=== PATIENT | male | born 1945 | race Caucasian/White ===

== ENCOUNTER → 2017-12-10 | Outpatient (CLI) | payer MEDICARE ==
[~2017-12-10] MED LIST: ACET325 PO; AMOCLA875 PO; ASCO500 PO; ASPI81CH PO; BLOOD PRESSURE MED; CEPH500 PO; CHOL10002 PO; CYAN1000 PO; CYAN500 PO; DOCU100 PO; GLIP2.5ER PO; GLIP5 PO; GUAI600T33; HYDCHL25 PO; Juven1 EACH PO; LEVAQUIN-D750 MG/150 IV; LISI5 PO; LISINOPRIL; Lisinopril2.5 MG PO; MECL25 PO; METF500 PO; METO100ER PO; Mysoline250 MG PO; NAPR500 PO; NITR100CA PO; ONDA4ODT MM; OSEL75CA; PHENY100ER PO; PRIM250 PO; PROBIOTIC1 EAC1; Prosource30 ML PO; SIMV10 PO; SIMV5 PO; SULTRIDS; SULTRIDS PO; TAMS.4ER PO; Vancocin HCL1000 M1 IV; WARF10 PO; WARF2.5 PO; WARF7.5 PO
== END | disposition home or self-care (01) ==
LOC: PLD 08:06 → LAB SHORT 08:06
DX: C44.612 Basal cell carcinoma of skin of right upper limb, including shoulder (principal); D04.62 Carcinoma in situ of skin of left upper limb, including shoulder; D04.61 Carcinoma in situ of skin of right upper limb, including shoulder
CPT/HCPCS: 88305

== ENCOUNTER → 2017-12-30 | Outpatient (CLI) | payer MEDICARE | LOC: LAB SHORT → PLD | DX: C44.612 Basal cell carcinoma of skin of right upper limb, including shoulder (principal) | CPT/HCPCS: 88305 ==

== ENCOUNTER → 2018-02-13 | Outpatient (CLI) | payer MEDICARE | LOC: LAB 11:32 | DX: L08.0 Pyoderma (principal) | CPT/HCPCS: 87070; 87077; 87147; 87186; 87205 ==

== ENCOUNTER 2018-06-21 13:49 | Emergency (ER) | payer MEDICARE ==
[~2018-06-21] VITALS: Ht 188 cm; Wt 136.1 kg
[~2018-06-21 13:49] MED LIST changes: -CEPH500 PO
[2018-06-21 14:16] LABS: Source, Urine Catheter
[2018-06-21 14:19] LABS: Bilirubin, Urine Neg (Neg); Blood, Urine 4+ (Neg); Glucose Qualitative, Urine Neg (Neg); Ketones, Urine Neg (Neg); Leukocyte Esterase, Urine 3+ (Neg); Nitrite, Urine Neg (Neg); Protein, Urine 1+ (Neg); Specific Gravity, Urine 1.015 (1.003-1.022); Urobilinogen, Urine NORM (Normal)
[2018-06-21 14:21] LABS: Appearance, Urine Cloudy (Clear); Color, Urine Yellow (P-Yellow)
[2018-06-21 14:25] LABS: Bacteria Many /hpf; Hyaline Casts 0-2 /lpf (0-2); Red Blood Cells, Urine 0-2 /hpf (0-2); Squamous Epithelial Cells Not Seen /hpf (Few); White Blood Cells, Urine TNTC /hpf (0-5)
[2018-06-21] MEDS ORDERED: CEPH500 PO (14:31)
== END 2018-06-21 15:02 | disposition home or self-care (01) ==
LOC: ER 13:49
PROVIDERS: Emergency Medicine
DX: T83.090A Other mechanical complication of cystostomy catheter, initial encounter (principal); N39.0 Urinary tract infection, site not specified; I11.0 Hypertensive heart disease with heart failure; I50.9 Heart failure, unspecified; E11.9 Type 2 diabetes mellitus without complications; E78.5 Hyperlipidemia, unspecified; Z79.82 Long term (current) use of aspirin; Z79.899 Other long term (current) drug therapy; Z79.84 Long term (current) use of oral hypoglycemic drugs
CPT/HCPCS: 51705; 81001; 87077; 87086; 87147; 87186; 99284-25; C2627

== ENCOUNTER 2019-03-22 08:10 | Inpatient (IN) | payer MEDICARE ==
[~2019-03-22] VITALS: Ht 185.4 cm; Wt 137.1 kg
[~2019-03-22 08:10] MED LIST changes: +Aspirin EC81 MG PO; +CEPH500 PO; +Dilantin 100 m100 MG PO; -GLIP2.5ER PO
[2019-03-22 08:52] LABS: BASOPHILS ABSOLUTE AUTO 0.02 K/mm3 (0.00-0.23); BASOPHILS PERCENT AUTO 1 % (0-2); EOSINOPHILS ABSOLUTE AUTO 0.09 K/mm3 (0.00-0.68); EOSINOPHILS PERCENT AUTO 4 % (0-6); Hematocrit 32.9 % (37.0-53.0); Hemoglobin 10.1 g/dL (13.5-17.5); IMMATURE GRAN PERCENT AUTO 0 % (0-1); LYMPHOCYTES ABSOLUTE AUTO 0.58 K/mm3 (0.84-5.20); LYMPHOCYTES PERCENT AUTO 26 % (21-46); MONOCYTES ABSOLUTE AUTO 0.28 K/mm3 (0.16-1.47); MONOCYTES PERCENT AUTO 13 % (4-13); Mean Corpuscular HGB 27.1 pg (26.0-34.0); Mean Corpuscular HGB Conc 30.7 g/dL (31.5-36.5); Mean Corpuscular Volume 88 fL (80-100); Mean Platelet Volume 9.8 fL (9.1-12.4); NEUTROPHILS ABSOLUTE AUTO 1.24 K/mm3 (1.96-9.15); NEUTROPHILS PERCENT AUTO 56 % (41-73); Platelet Count 87 K/mm3 (150-400); RDW Coefficient Variation 18.5 % (11.7-14.2); RDW Standard Deviation 57.6 fL (35.1-46.3); Red Blood Cell Count 3.73 M/mm3 (4.30-5.90); White Blood Cell Count 2.21 K/mm3 (4.00-11.30)
[2019-03-22 09:09] LABS: International Normalized Ratio 1.01; Prothrombin Time Results 10.7 Sec (9.7-11.5)
[2019-03-22 09:16] LABS: Alanine Aminotransfer (ALT/SGP 40 U/L (12-78); Albumin/Globulin Ratio 0.7 (0.8-1.8); Alk Phos 241 U/L (50-136); Anion Gap 3 mmol/L (6-16); Aspartate Aminotrans (AST/SGOT 40 U/L (12-37); Bilirubin, Total 0.4 mg/dL (0.1-1.0); Blood Urea Nitrogen 16 mg/dL (8-24); Bun/Creatinine Ratio 21.2 (12.0-20.0); CO2, Blood 30 mmol/L (21-32); CPK Creatine Kinase 68 U/L (39-308); Chloride, Blood 108 mmol/L (98-108); Creatinine, Blood 0.75 mg/dL (0.60-1.20); Ethanol (Alcohol), Blood, Med <3 mg/dL; Globulin, Blood 4.6 g/dL (2.2-4.0); Glomerular Filtration Rate >60 (60-); Glucose, Blood 113 mg/dL (70-99); Potassium, Blood 4.3 mmol/L (3.5-5.5); Sodium, Blood 141 mmol/L (136-145); Total Protein, Blood 7.6 g/dL (6.4-8.2)
[2019-03-22 09:40] LABS: Source, Urine Catheter
[2019-03-22 09:53] LABS: Appearance, Urine Cloudy (Clear); Bilirubin, Urine Neg (Neg); Blood, Urine 5+ (Neg); Color, Urine Yellow (P-Yellow); Glucose Qualitative, Urine Neg (Neg); Ketones, Urine Neg (Neg); Leukocyte Esterase, Urine 3+ (Neg); Nitrite, Urine Pos (Neg); Protein, Urine 3+ (Neg); Urobilinogen, Urine 1+ (Normal)
[2019-03-22 10:03] LABS: White Blood Cells, Urine TNTC /hpf (0-5)
[2019-03-22 10:04] LABS: Bacteria Many /hpf; Squamous Epithelial Cells Rare /hpf (Few)
[2019-03-22 10:10] LABS: U Amphetamine Screen Not Detected; U Barbituate Screen DETECTED; U Benzodiazapine Screen Not Detected; U Buprenorphine Screen Not Detected; U Cannabinoids Screen Not Detected; U Cocaine Screen Not Detected; U Methadone Screen Not Detected; U Methamphetamine Screen Not Detected; U Opiates Screen Not Detected; U Oxycodone Screen Not Detected; U Phencyclidine Screen Not Detected; U Propoxyphene Screen Not Detected
[2019-03-22 10:48] LABS: Dilantin (Phenytoin), Total 0.7 ug/mL (10.0-20.0)
[2019-03-22] MEDS ORDERED: Prinivil10 MG PO (12:11)
[2019-03-22] MEDS ORDERED: PHENY100ER PO (14:27)
--- NOTE | 2019-03-22 14:27 | NUR ---
Echocardiogram using 0.60ml of Definity contrast performed.
[2019-03-22] MEDS ORDERED: PRIM250 PO ×2 (14:28→14:29)
[2019-03-22] MEDS ORDERED: INSULANPEN SC (14:29)
[2019-03-22] MEDS ORDERED: TRESIBA FL200 UNIT/1 SC (14:30)
[2019-03-22] MEDS ORDERED: ELIQUIS5 MG PO (14:31)
--- NOTE | 2019-03-22 14:49 | NUR ---
ADMIT REPORT RECEIVED FROM SUSIE HALE. PT ARRIVED VIA GURNEY ACCOMPANIED BY RN AND FAMILY. PT RESTING QUIETLY. OPENS HIS EYES. SLOW TO RESPOND BUT ANSWERS ARE APPROPRAITE. FAMILY RELATES THAT HE HAS BEEN DECLINING PHYSICALLY FOR MONTHS. SPENDS MOST OF HIS TIME SLEEPING IN THE RECLINER. REFUSING TO BATH. REFUSED HOMEHEALTH FOR BATHING WELL. FAMILY IS ASKING FOR HELP AND COMMUNITY RESOURCES. D/T PT STOPPING BREATHING IN CT SCAN PLACED HIM ON A CONTINIOUS BIOX. FAMILY RELATED THAT HIS SEIZURES ARE NORMALLY VERY VIOLENT AND AGRESSIVE. STOPPING BREATHING IS NOT HIS NORMAL PATTERN. FAMILY RELATES THAT PT IS VERY SENSATIVE TO LOW LEVEL DILANTIN. CONTINUE POT.
[2019-03-23 04:18] LABS: BASOPHILS ABSOLUTE AUTO 0.02 K/mm3 (0.00-0.23); BASOPHILS PERCENT AUTO 1 % (0-2); EOSINOPHILS ABSOLUTE AUTO 0.09 K/mm3 (0.00-0.68); EOSINOPHILS PERCENT AUTO 3 % (0-6); Hematocrit 31.3 % (37.0-53.0); Hemoglobin 9.5 g/dL (13.5-17.5); IMMATURE GRAN PERCENT AUTO 0 % (0-1); LYMPHOCYTES ABSOLUTE AUTO 0.64 K/mm3 (0.84-5.20); LYMPHOCYTES PERCENT AUTO 24 % (21-46); MONOCYTES ABSOLUTE AUTO 0.39 K/mm3 (0.16-1.47); MONOCYTES PERCENT AUTO 15 % (4-13); Mean Corpuscular HGB 27.3 pg (26.0-34.0); Mean Corpuscular HGB Conc 30.4 g/dL (31.5-36.5); Mean Corpuscular Volume 90 fL (80-100); Mean Platelet Volume 10.2 fL (9.1-12.4); NEUTROPHILS ABSOLUTE AUTO 1.55 K/mm3 (1.96-9.15); NEUTROPHILS PERCENT AUTO 58 % (41-73); Platelet Count 85 K/mm3 (150-400); RDW Coefficient Variation 18.6 % (11.7-14.2); RDW Standard Deviation 58.9 fL (35.1-46.3); Red Blood Cell Count 3.48 M/mm3 (4.30-5.90); White Blood Cell Count 2.69 K/mm3 (4.00-11.30)
[2019-03-23 04:33] LABS: Anion Gap 5 mmol/L (6-16); Blood Urea Nitrogen 19 mg/dL (8-24); Bun/Creatinine Ratio 21.6 (12.0-20.0); CO2, Blood 30 mmol/L (21-32); Chloride, Blood 107 mmol/L (98-108); Creatinine, Blood 0.88 mg/dL (0.60-1.20); Glomerular Filtration Rate >60 (60-); Glucose, Blood 109 mg/dL (70-99); Potassium, Blood 4.3 mmol/L (3.5-5.5); Sodium, Blood 142 mmol/L (136-145)
--- NOTE | 2019-03-23 06:33 | NUR ---
SHIFT SUMMARY PT HAS REMAINED ORIENTED TO SELF AND SURROUNDINGS THROUGHOUT SHIFT, BUT REMAINS UNABLE TO STATE TIME/YEAR/PRESIDENT. VSS. VERY PLEASANT AND COOPERATIVE WITH CARE. NO SEIZURE-LIKE ACTIVITY NOTED THROUGHOUT THE NIGHT. PT WITH ONE O2 DESATURATION LAST NIGHT WHILE SLEEPING, SATS DECREASED TO 80%, 2L VIA NASAL CANNULA PLACED AND SATS INCREASED TO >90% WITHIN ONE MINUTE- NO FURTHER DESATURATIONS WITH NASAL CANNULA IN PLACE @ 1L. PT CONTINUES TO REQUIRE ENCOURAGEMENT TO ASSIST WITH TURNING, BUT IS ABLE TO ASSIST WHEN PROMPTED. TURNED Q2 THROUGHOUT SHIFT. NO OTHER CHANGES NOTED FORM INITIAL ASSESSMENT. WILL CONTINUE TO MONITOR AND REPORT TO ONCOMING SHIFT RN. BED IN LOW POSITION. CALL LIGHT IN REACH.
[2019-03-23 10:43] LABS: Albumin/Globulin Ratio 0.7 (0.8-1.8); Bilirubin, Direct 0.1 mg/dL (0.0-0.3); Bilirubin, Indirect 0.4 mg/dL (0.1-0.7); Bilirubin, Total 0.5 mg/dL (0.1-1.0); Globulin, Blood 4.2 g/dL (2.2-4.0); Total Protein, Blood 7.2 g/dL (6.4-8.2)
--- NOTE | 2019-03-23 18:38 | NUR ---
EVENING NOTE PT ALERT AND ORIENTED. NO SEIZURE ACTIVITY NOTED. PT HAS RESTED WELL. AWAKENS READILY. PT WAS PREPPED FOR THE FIRST PART OF THE [place] BUT HIS LEFT AC IV INFILTRATED. WAS NOT ABLE TO COMPLETE THE SCAN TODAY. PT IS A DIFFICULT IV START. PLANNING A POWER GLIDE FOR TOMORROW. VSS. TURNS WITH MAX ASSIST. HE IS STARTING TO MOVE MORE. LEGS ARE PRETTY HEAVY AND SWOLLEN STILL. SUPRA PUBIC DRAINING WELL. APPETITE IMPROVING. CONTINUE POT.
[2019-03-24 06:32] LABS: BASOPHILS ABSOLUTE AUTO 0.02 K/mm3 (0.00-0.23); BASOPHILS PERCENT AUTO 1 % (0-2); EOSINOPHILS ABSOLUTE AUTO 0.09 K/mm3 (0.00-0.68); EOSINOPHILS PERCENT AUTO 3 % (0-6); Hematocrit 32.3 % (37.0-53.0); Hemoglobin 9.7 g/dL (13.5-17.5); IMMATURE GRAN ABSOLUTE AUTO 0.01 K/mm3 (0.00-0.10); IMMATURE GRAN PERCENT AUTO 0 % (0-1); LYMPHOCYTES PERCENT AUTO 23 % (21-46); MONOCYTES ABSOLUTE AUTO 0.37 K/mm3 (0.16-1.47); MONOCYTES PERCENT AUTO 12 % (4-13); Mean Corpuscular HGB 27.2 pg (26.0-34.0); Mean Corpuscular Volume 91 fL (80-100); Mean Platelet Volume 9.6 fL (9.1-12.4); NEUTROPHILS ABSOLUTE AUTO 1.81 K/mm3 (1.96-9.15); NEUTROPHILS PERCENT AUTO 60 % (41-73); Platelet Count 78 K/mm3 (150-400); RDW Coefficient Variation 18.7 % (11.7-14.2); Red Blood Cell Count 3.57 M/mm3 (4.30-5.90)
--- NOTE | 2019-03-24 06:35 | NUR ---
SHIFT SUMMARY PT HAS REMAINED AOX4 THROUGHOUT SHIFT. VSS. PLEASANT AND COOPERATIVE WITH CARE. PT REMAINS ON BEDREST AT THIS TIME, BUT IS ASSISTING WITH TURNS WHEN PROMPTED AND PERFORMING RANGE OF MOTION EXERCISES WHILE HE IS AWAKE. PT MEDICATED ONCE FOR PAIN IN L SHOULDER FROM PREVIOUS ROTATOR CUFF INJURY THAT DECREASED WITH ORDERED MEDICATIONS. PT ALSO REPORTING SOME DISCOMFORT IN BUTTOCKS- PT EDUCATED ON IMPORTANCE OF TURNING FOR SKIN INTEGRITY- MOVEMENT REINFORCED. POWERGLIDE PLACED TO BHASKAR. PT HAS REMAINED NPO SINCE MIDNIGHT IN PREPARATION FOR PROCEDURE TODAY. PT WITH O2 DESATURATION WHILE SLEEPING TO 86% THAT INCREASED TO >90% ON 1L VIA NASAL CANNULA WITHIN MINUTE. NO OTHER CHANGES FROM INITIAL ASSESSMENT, WILL CONTINUE TO MONITOR AND REPORT TO ONCOMING SHIFT RN. BED IN LOW POSITION, CALL LIGHT IN REACH.
[2019-03-24 06:50] LABS: Albumin, Blood 2.9 g/dL (3.4-5.0); Anion Gap 4 mmol/L (6-16); Blood Urea Nitrogen 23 mg/dL (8-24); Bun/Creatinine Ratio 24.6 (12.0-20.0); CO2, Blood 31 mmol/L (21-32); Calcium, Blood 8.9 mg/dL (8.5-10.1); Chloride, Blood 107 mmol/L (98-108); Creatinine, Blood 0.94 mg/dL (0.60-1.20); Glomerular Filtration Rate >60 (60-); Glucose, Blood 92 mg/dL (70-99); Phosphorus, Blood 4.2 mg/dL (2.5-4.9); Potassium, Blood 4.3 mmol/L (3.5-5.5); Sodium, Blood 142 mmol/L (136-145)
--- NOTE | 2019-03-24 16:59 | NUR ---
SHIFT SUMMARY PT IS ALERT AND ORIENTED TO PERSON, PLACE, AND SITUATION. PT FAMILY STATES THIS IS THE "MOST ALERT HE HAS BEEN", BUT HAS BEEN SLEEPING MOST OF THE DAY. PT HAS BEEN IN BED ALL DAY, REPOSITIONED Q2HRS, HAS GENERALIZED CHRONIC PAIN OF 5 THAT IS ALLEVIATED WITH REPOSITIONING. SUPRAPUBIC CATHETER IS DRAINING APPROPRIATELY, REDNESS AT CATHETER INSERTION SITE AND SKIN FOLDS, BEING TREATED WITH MYCOSTATIN. RESTING PORTION OF THE CARDIAC STRESS TEST WAS COMPLETED TODAY, STRESS PORTION WAS POSTPONED TIL TOMORROW, DUE TO AVAILABLITY OF MOBILE EQUIPMENT THAT CAN BE USED IN THE ROOM FOR THE TEST, PT UNABLE TO TRANSFER TO WHEELCHAIR. PT RESTING CALMLY, CALL LIGHT IN REACH, BED IN LOWEST POSITION, PT ORIENTED TO SAFETY PRECAUTIONS.
[2019-03-25 06:16] LABS: BASOPHILS ABSOLUTE AUTO 0.02 K/mm3 (0.00-0.23); BASOPHILS PERCENT AUTO 1 % (0-2); EOSINOPHILS ABSOLUTE AUTO 0.08 K/mm3 (0.00-0.68); EOSINOPHILS PERCENT AUTO 3 % (0-6); Hematocrit 30.4 % (37.0-53.0); Hemoglobin 9.3 g/dL (13.5-17.5); IMMATURE GRAN ABSOLUTE AUTO 0.01 K/mm3 (0.00-0.10); IMMATURE GRAN PERCENT AUTO 0 % (0-1); LYMPHOCYTES PERCENT AUTO 26 % (21-46); MONOCYTES ABSOLUTE AUTO 0.32 K/mm3 (0.16-1.47); MONOCYTES PERCENT AUTO 12 % (4-13); Mean Corpuscular HGB 27.3 pg (26.0-34.0); Mean Corpuscular HGB Conc 30.6 g/dL (31.5-36.5); Mean Corpuscular Volume 89 fL (80-100); Mean Platelet Volume 10.1 fL (9.1-12.4); NEUTROPHILS ABSOLUTE AUTO 1.62 K/mm3 (1.96-9.15); NEUTROPHILS PERCENT AUTO 59 % (41-73); Platelet Count 69 K/mm3 (150-400); RDW Coefficient Variation 18.9 % (11.7-14.2); RDW Standard Deviation 59.4 fL (35.1-46.3); Red Blood Cell Count 3.41 M/mm3 (4.30-5.90); White Blood Cell Count 2.75 K/mm3 (4.00-11.30)
[2019-03-25 06:26] LABS: Albumin, Blood 2.8 g/dL (3.4-5.0); Anion Gap 3 mmol/L (6-16); Blood Urea Nitrogen 25 mg/dL (8-24); Bun/Creatinine Ratio 24.8 (12.0-20.0); CO2, Blood 32 mmol/L (21-32); Chloride, Blood 106 mmol/L (98-108); Creatinine, Blood 1.01 mg/dL (0.60-1.20); Glomerular Filtration Rate >60 (60-); Glucose, Blood 106 mg/dL (70-99); Phosphorus, Blood 3.7 mg/dL (2.5-4.9); Potassium, Blood 4.3 mmol/L (3.5-5.5); Sodium, Blood 141 mmol/L (136-145)
--- NOTE | 2019-03-25 06:47 | NUR ---
SHIFT SUMMARY PT HAS REMAINED AOX4 THROUGHOUT SHIFT, BUT SLOW TO RESPOND TO QUESTIONS. VSS. PLEASANT AND COOPERATIVE WITH CARE. PT HAS SLEPT THROUGHOUT MUCH OF THE NIGHT AND ASSISTED WITH TURNING. MEDICATED ONE TIME FOR GENERALIZED PAIN THAT DECREASED WITH ORDERED MEDICATIONS. O2 SATS HAVE REMAINED >90% ON RA THROUGHOUT THE NIGHT. PT TO BE NPO AFTER BREAKFAST IN ANTICIPATION FOR TEST THIS AFTERNOON. NO OTHER CHANGES FROM INITIAL ASSESSMENT. WILL CONTINUE TO MONITOR AND REPORT TO ONCOMING SHIFT RN. BED IN LOW POSITION, CALL LIGHT IN REACH.
[2019-03-25 15:02] LABS: CHOL/HDL RATIO 2.5; Cholesterol 126 mg/dL (50-200); HDL Cholesterol 51 mg/dL (>39); LDL/HDL RATIO 1.2; Low Density Lipoprotein Chol 59 mg/dL (0-110); Triglycerides 79 mg/dL (30-160); Very Low Density Lipoprot Chol 15 mg/dL (6-32)
--- NOTE | 2019-03-25 16:03 | NUR ---
SHIFT SUMMARY PT HAS BEEN INCREASINGLY MORE ALERT AND ORIENTED TODAY, WITH BOUTS OF CONFUSION REGARDING PLAN OF CARE. STATED TO 2 STAFF MEMBERS THAT HE THOUGHT HE HAD LUNG CANCER. PT HAS BEEN REPOSITIONED Q2HRS, MYCOSTATIN APPLIED TO SKIN FOLDS WITH REDNESS, SUPRAPUBIC CATH IS DRAINING APPROPRIATELY. PT WAS GIVEN 1L OF OXYGEN WHILE RESTING DUE TO DESTATING INTO THE LOW 80'S, BEEN ON RA THE REST OF THE DAY AND SATURATING AROUND 94%. CBG'S STABLE WITH NO NEED FOR INSULIN. STRESS TEST HAS BEEN CANCELLED. PT WAS SEEN BY PT&OT. CALL LIGHT IN REACH, BED IN LOWEST POSITION, PT ORIENTED TO SAFETY INSTRUCTIONS.
--- NOTE | 2019-03-25 22:40 | NUR ---
PM NOTE. ASSUMED CARE OF PT APROX 1900, PT IS A&O BUT SLOW TO RESPOND AT TIMES. PT WAS ADMITTED DUE TO SEIZURES AND WAS FOUND TO BE A UTI. TELE INTACT, NSR IN THE 60'S PER BARNWORKER GROOM, PT'S BP 116/64, PT HAS 2+ EDEMA TO HIS BLE AND 3+ TO HIS FEET. PT IS ON RA, RR ARE 21 EVEN AN UNLABORED. L/S CLEAR T/O W/FINE CRACKLES IN THE LEFT LOWER LOBE. BT PRESENT AND HYPOACTIVE,ABD IS SLIGHTLY FIRM BUT NONTENDER TO PALP. PT HAD RED YESTY RASH TO HIS SCOOBY AREA AND ABD FOLDS, THESE AREAS WERE CLEANED AND MEDICATED W/NYSTATIN POWDER PER ORDERS. CALL LIGHT IN REACH, BED IS LOCKED AND LOW WILL CONTINUE TO MONITOR.
--- NOTE | 2019-03-26 05:38 | NUR ---
SHIFT SUMMARY. NO ACUTE CHANGES NOTED. PT'S VS HAVE BEEN STABLE T/O SHIFT. PT DENIES ANY CHEST PAIN/PRESSURE, N/V OR SOB. PT HAS BEEN TURNED Q2. PT HAS SLEPT WELL MOST OF THE NIGHT. PT HAS BEEN ON RA THIS SHIFT W/O2 SATS >90%. PT HAS BEEN IN NSR IN THE 60'S WITH NO EVENTS PER IMPREGNATING TANK OPERATOR. CALL LIGHT IN REACH, BED IS LOCKED AND LOW WILL CONTINUE TO MONITOR UNTIL REPORT IS GIVEN TO ONCOMING RN.
[2019-03-26 08:07] LABS: BASOPHILS ABSOLUTE AUTO 0.01 K/mm3 (0.00-0.23); BASOPHILS PERCENT AUTO 0 % (0-2); EOSINOPHILS ABSOLUTE AUTO 0.09 K/mm3 (0.00-0.68); EOSINOPHILS PERCENT AUTO 3 % (0-6); Hematocrit 32.2 % (37.0-53.0); Hemoglobin 9.7 g/dL (13.5-17.5); IMMATURE GRAN PERCENT AUTO 0 % (0-1); LYMPHOCYTES ABSOLUTE AUTO 0.75 K/mm3 (0.84-5.20); LYMPHOCYTES PERCENT AUTO 27 % (21-46); MONOCYTES ABSOLUTE AUTO 0.35 K/mm3 (0.16-1.47); MONOCYTES PERCENT AUTO 13 % (4-13); Mean Corpuscular HGB 26.9 pg (26.0-34.0); Mean Corpuscular HGB Conc 30.1 g/dL (31.5-36.5); Mean Corpuscular Volume 89 fL (80-100); Mean Platelet Volume 10.5 fL (9.1-12.4); NEUTROPHILS ABSOLUTE AUTO 1.61 K/mm3 (1.96-9.15); NEUTROPHILS PERCENT AUTO 57 % (41-73); Platelet Count 64 K/mm3 (150-400); RDW Coefficient Variation 18.7 % (11.7-14.2); RDW Standard Deviation 60.4 fL (35.1-46.3); Red Blood Cell Count 3.61 M/mm3 (4.30-5.90); White Blood Cell Count 2.81 K/mm3 (4.00-11.30)
[2019-03-26 08:42] LABS: Anion Gap 2 mmol/L (6-16); Blood Urea Nitrogen 23 mg/dL (8-24); Bun/Creatinine Ratio 23.9 (12.0-20.0); CO2, Blood 34 mmol/L (21-32); Calcium, Blood 8.8 mg/dL (8.5-10.1); Chloride, Blood 105 mmol/L (98-108); Creatinine, Blood 0.96 mg/dL (0.60-1.20); Glomerular Filtration Rate >60 (60-); Glucose, Blood 97 mg/dL (70-99); Potassium, Blood 4.1 mmol/L (3.5-5.5); Sodium, Blood 141 mmol/L (136-145)
[2019-03-26] MEDS ORDERED: Lisinopril2.5 MG PO (14:40)
[2019-03-26] MEDS ORDERED: ACET325 PO (14:41)
[2019-03-26] MEDS ORDERED: ATOR80 PO (14:42)
[2019-03-26] MEDS ORDERED: DOCU100 PO (14:43)
[2019-03-26] MEDS ORDERED: FURO20 PO (14:45)
[2019-03-26] MEDS ORDERED: LEVE500 PO (14:46)
[2019-03-26] MEDS ORDERED: Humalog Mi100 UNIT/4 SC (14:47)
[2019-03-26] MEDS ORDERED: METO25 PO (15:03)
[2019-03-26] MEDS ORDERED: Pedi-Dri 100,0060 GM TOP (15:03)
--- NOTE | 2019-03-26 18:19 | NUR ---
SHIFT SUMMARY PT ALERT AND ORIENTED. VS STABLE. ORDERS FOR DISCHARGE THIS SHIFT. REPORT CALLED TO [facility]. CASE MANAGEMENT COORDINATED DISCHARGE. POWER GLIDE REMOVED. TELEMETRY REMOVED. PT TO BE TAKEN BY [facility] VIA WHEELCHAIR TO [facility].
== END 2019-03-26 18:41 | DRG 100 ==
LOC: ER 08:10 → PCU 11:53
PROVIDERS: Physician Assistant; ADMIT Internal Medicine
DX: G40.909 Epilepsy, unspecified, not intractable, without status epilepticus (principal); I21.A1 Myocardial infarction type 2; I50.23 Acute on chronic systolic (congestive) heart failure; D61.818 Other pancytopenia; D68.51 Activated protein C resistance; I16.1 Hypertensive emergency; I11.0 Hypertensive heart disease with heart failure; E11.9 Type 2 diabetes mellitus without complications; N31.9 Neuromuscular dysfunction of bladder, unspecified; Z86.711 Personal history of pulmonary embolism; G62.9 Polyneuropathy, unspecified; Z91.14 Patient's other noncompliance with medication regimen; E78.5 Hyperlipidemia, unspecified; N40.1 Benign prostatic hyperplasia with lower urinary tract symptoms; Z87.891 Personal history of nicotine dependence; Z79.01 Long term (current) use of anticoagulants; Z99.3 Dependence on wheelchair; I25.10 Atherosclerotic heart disease of native coronary artery without angina pectoris
CPT/HCPCS: 36415; 51705; 70450; 71045; 80048; 80053; 80061; 80069; 80076; 80185; 81001; 82550; 82607; 82746; 82947; 83036; 83605; 83880; 84484; 85025; 85610; 87040; 87086; 93005; 93010; 94640; 94760; 94762; 96365-59; 96367-59; 96375-59; 97110; 97162; 97166; 97530; 97535; 99285-25; C1751; C2627; C8929; G0480; J0696; J0706; J1165; J1940; J1953; J2785; J7050; Q9957

== ENCOUNTER 2019-04-16 10:24 | Inpatient (IN) | payer MEDICARE ==
[~2019-04-16] VITALS: Ht 185.4 cm; Wt 135.3 kg
[~2019-04-16 10:24] MED LIST changes: +ATOR80 PO; +ELIQUIS5 MG PO; +FURO20 PO; +Humalog100 UNIT/1 SC; +INSULANPEN SC; +LEVE500 PO; +METO25 PO; +Pedi-Dri 100,0060 GM TOP; +Prinivil10 MG PO; +TRESIBA FL200 UNIT/1 SC
[2019-04-16 10:59] LABS: PCO2 Arterial 54.6 mmHg (35-45); PO2 Arterial 421 mmHg (80-100); pH Blood Arterial 7.44 (7.35-7.45)
[2019-04-16 11:07] LABS: BASOPHILS ABSOLUTE AUTO 0.01 K/mm3 (0.00-0.23); BASOPHILS PERCENT AUTO 0 % (0-2); EOSINOPHILS ABSOLUTE AUTO 0.07 K/mm3 (0.00-0.68); EOSINOPHILS PERCENT AUTO 2 % (0-6); Hematocrit 33.3 % (37.0-53.0); Hemoglobin 10.3 g/dL (13.5-17.5); IMMATURE GRAN ABSOLUTE AUTO 0.01 K/mm3 (0.00-0.10); IMMATURE GRAN PERCENT AUTO 0 % (0-1); LYMPHOCYTES ABSOLUTE AUTO 0.48 K/mm3 (0.84-5.20); LYMPHOCYTES PERCENT AUTO 16 % (21-46); MONOCYTES ABSOLUTE AUTO 0.35 K/mm3 (0.16-1.47); MONOCYTES PERCENT AUTO 11 % (4-13); Mean Corpuscular HGB 27.8 pg (26.0-34.0); Mean Corpuscular HGB Conc 30.9 g/dL (31.5-36.5); Mean Corpuscular Volume 90 fL (80-100); Mean Platelet Volume 11.5 fL (9.1-12.4); NEUTROPHILS ABSOLUTE AUTO 2.14 K/mm3 (1.96-9.15); NEUTROPHILS PERCENT AUTO 70 % (41-73); RDW Standard Deviation 63.9 fL (35.1-46.3); White Blood Cell Count 3.06 K/mm3 (4.00-11.30)
[2019-04-16 11:11] LABS: Platelet Count 29 K/mm3 (150-400)
[2019-04-16 11:22] LABS: Albumin, Blood 2.6 g/dL (3.4-5.0); Albumin/Globulin Ratio 0.6 (0.8-1.8); Bilirubin, Total 0.7 mg/dL (0.1-1.0); Bun/Creatinine Ratio 25.4 (12.0-20.0); Calcium, Blood 9.3 mg/dL (8.5-10.1); Creatinine, Blood 1.42 mg/dL (0.60-1.20); Globulin, Blood 4.3 g/dL (2.2-4.0); Potassium, Blood 4.3 mmol/L (3.5-5.5); Total Protein, Blood 6.9 g/dL (6.4-8.2); Troponin I 0.029 ng/mL (0.000-0.040)
[2019-04-16 12:42] LABS: Source, Urine Catheter
[2019-04-16 12:49] LABS: Bilirubin, Urine Neg (Neg); Blood, Urine 1+ (Neg); Glucose Qualitative, Urine Neg (Neg); Ketones, Urine Neg (Neg); Leukocyte Esterase, Urine 3+ (Neg); Nitrite, Urine Neg (Neg); Protein, Urine Neg (Neg); Specific Gravity, Urine 1.015 (1.003-1.022); Urobilinogen, Urine NORM (Normal)
[2019-04-16 13:29] LABS: Appearance, Urine Hazy (Clear); Color, Urine Yellow (P-Yellow)
[2019-04-16 13:32] LABS: White Blood Cells, Urine 25-50 /hpf (0-5)
[2019-04-16 13:33] LABS: Amorphous Light (0-Heavy); Squamous Epithelial Cells Few /hpf (Few); Transitional Epithelial Cells Few /hpf (0-Rare)
[2019-04-16 13:34] LABS: Bacteria Few /hpf
[2019-04-16 14:02] LABS: International Normalized Ratio 1.08; Prothrombin Time Results 11.4 Sec (9.7-11.5)
[2019-04-16] MEDS ORDERED: BUME2 PO (14:05)
[2019-04-16] MEDS ORDERED: METO5 PO (14:06)
[2019-04-16] MEDS ORDERED: POTCHL10ER PO (14:07)
[2019-04-16 15:07] LABS: D-Dimer, Quantitative 0.87 mg/L FEU (0.00-0.52)
[2019-04-16 15:11] LABS: Free Thyroxine 0.91 ng/dL (0.70-1.60)
[2019-04-16 15:12] LABS: Triiodothyronine, Free 1.64 pg/mL (2.18-3.98)
--- NOTE | 2019-04-16 18:06 | NUR ---
1535 PT ADMITTED TO ICU-5 VIA STRETCHER. PT ON BIPAP WITH GOOD SATS EVEN THOUGH RT INCIATES PT HAD SHALLOW BREATHING AND NEARLY APNIC MOMENTARILY. PT WOULD GROAN "YEAH" TO SIMPLE QUESTIONS AND THEN WOULD RETURN TO SEMI RESPONSIVE STATE. LUNGS DIM IN BASES. BIPAP 16/8 40 %. SUPRAPUBIC CATH SECURED AND U.O. NOTED OF DARK YELLOW URINE. THE RIJ IS NOTED AND REPORTED TO HAVE SIGNIFICANT OOZING. SITE UNDRESSED TO MANAGED BREATHING AND NOTED TO BE UNSECURED. DR KEY SUTURED IN PLACE. THEN CLEANED AND DRESSED WITH LARGE PRESSURE DRESSING PLACED. PLT COUNT NOTED AND OOZING PERSISTS. FAMILY IN TO VISIT.
--- NOTE | 2019-04-16 18:35 | NUR ---
PT SOMEWHAT AWAKE AND OPENING EYES SPONT. AND MOVING EYES SIDE TO SIDE AND ANSWERING QUESTIONS FOR A BRIEF TIME. PT REMAINS ON LEVOPHED GTT AT 8 MCG AND NS 20K AT 125ML. BIPAP REMAINS IN PLACE. FAX OF [facility] RECIEVED.
[2019-04-16 19:28] LABS: Hematocrit 31.7 % (37.0-53.0); Hemoglobin 9.7 g/dL (13.5-17.5); Mean Platelet Volume 11.6 fL (9.1-12.4)
[2019-04-16 19:36] LABS: Platelet Count 33 K/mm3 (150-400)
--- NOTE | 2019-04-16 19:41 | NUR ---
Pt to ICU assist staff with pt. Review of pt with nursing and staff. Family in waiting are. will review plan of care after intesivist presents plan of care.
--- NOTE | 2019-04-16 20:32 | NUR ---
[place] of Care: Patient drowsy, responds to verbal stimuli, answers only short yes/no questions. Denies pain/discomfort. VSS, levophed gtt at 8mcg/min, NS with 20meq KCl infusing at 125ml/hr. Lg amount of bleeding/oozing noted from rt IJ central line. new dressing applied with tennille anna and pressure dressing with 2lbs weight applied over sterile dressing. Bleeding from site appears to have slowed. Spoke with Dr. Bain in unit r/t bleeding and plt-33, Dr. Bain placed order for x1 unit of plt's, await arrival from blood bank. BiPAP mask in place 16/8/35%, O2-98%, tolerating without difficulty. Supra-pubic catheter in place to rt lower ABD, draining small amounts of clear yellow urine. Plan to replace supra-pubic catheter early this shift as it was present upon admission to hospital. Will continue to monitor bleeding, VS, safety, comfort.
[2019-04-17 03:19] LABS: Source, Urine Catheter
[2019-04-17 03:21] LABS: Bilirubin, Urine Neg (Neg); Blood, Urine 5+ (Neg); Glucose Qualitative, Urine Neg (Neg); Ketones, Urine Neg (Neg); Leukocyte Esterase, Urine 3+ (Neg); Nitrite, Urine Neg (Neg); Protein, Urine 2+ (Neg); Urobilinogen, Urine NORM (Normal)
[2019-04-17 03:22] LABS: Appearance, Urine Cloudy (Clear); Color, Urine Yellow (P-Yellow)
[2019-04-17 03:27] LABS: Amorphous Light (0-Heavy); Bacteria Mod /hpf; Red Blood Cells, Urine 50-100 /hpf (0-2); Squamous Epithelial Cells Few /hpf (Few); White Blood Cells, Urine TNTC /hpf (0-5)
[2019-04-17 04:51] LABS: Base Excess Venous 6.1 mmol/L; Bicarbonate Venous 28.9 mmol/L (24.0-30.0); PCO2 Venous 54.5 mmHg (38-42); pH Blood Venous 7.37 (7.34-7.37)
[2019-04-17 05:05] LABS: BASOPHILS ABSOLUTE AUTO 0.01 K/mm3 (0.00-0.23); BASOPHILS PERCENT AUTO 0 % (0-2); EOSINOPHILS PERCENT AUTO 0 % (0-6); Hematocrit 27.4 % (37.0-53.0); Hemoglobin 8.3 g/dL (13.5-17.5); IMMATURE GRAN ABSOLUTE AUTO 0.02 K/mm3 (0.00-0.10); IMMATURE GRAN PERCENT AUTO 0 % (0-1); LYMPHOCYTES ABSOLUTE AUTO 0.58 K/mm3 (0.84-5.20); LYMPHOCYTES PERCENT AUTO 10 % (21-46); MONOCYTES ABSOLUTE AUTO 0.13 K/mm3 (0.16-1.47); MONOCYTES PERCENT AUTO 2 % (4-13); Mean Corpuscular HGB 27.7 pg (26.0-34.0); Mean Corpuscular HGB Conc 30.3 g/dL (31.5-36.5); Mean Corpuscular Volume 91 fL (80-100); Mean Platelet Volume 11.2 fL (9.1-12.4); NEUTROPHILS ABSOLUTE AUTO 5.27 K/mm3 (1.96-9.15); NEUTROPHILS PERCENT AUTO 88 % (41-73); RDW Coefficient Variation 19.8 % (11.7-14.2); White Blood Cell Count 6.01 K/mm3 (4.00-11.30)
[2019-04-17 05:10] LABS: Platelet Count 32 K/mm3 (150-400)
[2019-04-17 05:27] LABS: International Normalized Ratio 1.1; Prothrombin Time Results 11.6 Sec (9.7-11.5)
[2019-04-17 06:05] LABS: Albumin, Blood 2.3 g/dL (3.4-5.0); Albumin/Globulin Ratio 0.6 (0.8-1.8); Bilirubin, Total 0.9 mg/dL (0.1-1.0); Bun/Creatinine Ratio 24.8 (12.0-20.0); Calcium, Blood 8.5 mg/dL (8.5-10.1); Creatinine, Blood 1.65 mg/dL (0.60-1.20); Globulin, Blood 3.8 g/dL (2.2-4.0); Potassium, Blood 4.8 mmol/L (3.5-5.5); Total Protein, Blood 6.1 g/dL (6.4-8.2)
--- NOTE | 2019-04-17 07:18 | NUR ---
Shift Summary: Patient remained on pressure support of 10, PEEP-8, FiO2 decreased from 45 to 35%, O2-97-98%, tolerated these settings without difficulty. Continues to rouse to verbal stimuli, following simple commands, appears calm and comfortable at rest. Levophed titrated between 9-11mcg/min throughout shift, BP/HR stable. Tube feed continued at goal rate of 15ml/hr, 0ml residual throughout shift. PICC line remains patent and intact, infusing medications without difficulty. Loza cath patent and intact, draining light yellow clear urine. Report given to day shift RN Olivia and Edouard.
--- NOTE | 2019-04-17 07:26 | NUR ---
Shift Summary: No change in neuro status throughout shift. Continues to spontaneously rouse and rouse to verbal stimuli, but appears very drowsy. Oriented to self, and answers only simple yes/no questions. Continued on BiPAP until last 2-3hr of shift, O2 continues 96-98% on RA, no s/s of dyspnea/SOB. Bleeding from Rt IJ central line continues throughout most of shift. x1 unit of platelets given early in shift. Consulted Dr. Bain approx 2300hr as bleeding persisted. Dr. Bain applied additional sutures around insertion site, but bleeding still persisted, in moderate to large amounts. Dr. Bain then consulted on-call surgeon, then gave nursing staff instructions to apply direct manual pressure to insertion site. Direct pressure held for approx 1 1/2hr, and new pressure dressing applied, effective to stop bleeding. Rt IJ again started to bleed moderate/large amount approx 0600hr, direct pressure again held until shift change, bleeding stopped at that time. Levophed titrated between 6-12mcg/min throughout shift. New supra-pubic catheter placed per protocol following admission to hospital, drain clear urine with sediment. Bed-side report given to day shift GEOFFREY Baker and Edouard.
--- NOTE | 2019-04-17 07:50 | NUR ---
ASSUMED CARE RECEIVED REPORT FROM SORAYA, PT IS ASLEEP. PT HAS PRESSURE DREESSING OVER RIGHT IJ CENTRAL LINE, WHICH HAS BEEN OOZING BLOOD. PT IS NOT ORIENTED, AND IS NOT CLEAR WHEN HE ATTEMPTS TO SPEAK. PT IS RECIEVING LEVOPHED AT 10MCG/MIN, AND NS AT 125ML/HR.
--- NOTE | 2019-04-17 09:19 | NUR ---
partial echocardiogram complete
--- NOTE | 2019-04-17 18:32 | NUR ---
SHIFT SUMMARY PT IS ALERT, MAY BE ORIENTED BUT IS DIFFICULT TO UNDERSTAND WITH GARBLED SPEECH. PT IS RECIEVING LEVOPHED 6MCG/MIN. PT HAS KIM BUT DOES NOT WEAR BIPAP/CPAP AT HOME, WHEN ASLEEP SAT'S DROP TO LOW 90'S/HIGH 80'S. PT'S RIJ IS NO LONGER OOZING, PRESSURE DRESSING IN PLACE. PT IS EDEMATOUS IN HANDS AND FEET. PT IS ON 2L NC AT THIS MOMENT. FAMILY HAS BEEN AT BEDSIDE ALL DAY. PT REPORTS NO PAIN DISCOMFORT AT THIS TIME.
--- NOTE | 2019-04-17 21:55 | NUR ---
ASSUMING CARE RECEIVED PT REPORT FROM GEOFFREY MCDONALD AND GEOFFREY BARBOSA. PT IS ON OXYMIZER AT 9L O2 AT THE TIME CARE ASSUMED. PT SPO2 IS MAINTAINING IN THE 90'S. PT LUNG SOUNDS ARE CLEAR THOUGH DIMINISHED IN THE BASES. PT HAS A PRODUCTIVE COUGH WITH BROWNISH THICK SPUTUM. PT HR IS IN THE 70-80'S THOUGH PT HAS OCCASIONALLY BEEN NOTED TO HAVE HR IN THE 110-120'S FOR APPROX 1 MIN AT A TIME. PT HAS BEEN NOTED TO HAVE FREQUENT PVC'S. PT IS RECEIVING LEVOPHED AT 4MCG/MIN AT THE TIME CARE ASSUMED. LEVOPHED TITRATED DOWN TO 3.5 AND IS RUNNING AT THAT RATE AT THIS TIME. PT BP IS IN THE 100'S SYSTOLIC. PT IS DISORIENTED TO TIME AND DATE. PT IS ABLE TO ANSWER OTHER ORIENTATION QESTIONS THOUGH APPEARS TO BE OCCASIONALLY FORGETFUL OR SLIGHTLY CONFUSED AT TIMES. PT IS RECEIVING NS AT TKO AND LEVOPHED. PT HAS A ROBERTSON CATH IN PLACE, CURRENTLY PATENT AND DRAINING CLEAR YELLOW URINE. PT HAS A RECTAL TUBE IN PLACE. RECTAL TUBE IS PATENT AND DRAINING DARK LIQUIDY STOOL. ASSUMED CARE OF PT AT THE TIME OF SHIFT REPORT. WILL CONTIUE TO MONITOR PT.
[2019-04-18 03:47] LABS: BASOPHILS ABSOLUTE AUTO 0.02 K/mm3 (0.00-0.23); BASOPHILS PERCENT AUTO 0 % (0-2); EOSINOPHILS ABSOLUTE AUTO 0.02 K/mm3 (0.00-0.68); EOSINOPHILS PERCENT AUTO 0 % (0-6); Hematocrit 23.1 % (37.0-53.0); Hemoglobin 7.1 g/dL (13.5-17.5); IMMATURE GRAN ABSOLUTE AUTO 0.03 K/mm3 (0.00-0.10); IMMATURE GRAN PERCENT AUTO 0 % (0-1); LYMPHOCYTES ABSOLUTE AUTO 0.71 K/mm3 (0.84-5.20); LYMPHOCYTES PERCENT AUTO 9 % (21-46); MONOCYTES PERCENT AUTO 6 % (4-13); Mean Corpuscular HGB Conc 30.7 g/dL (31.5-36.5); Mean Corpuscular Volume 91 fL (80-100); Mean Platelet Volume 10.6 fL (9.1-12.4); NEUTROPHILS ABSOLUTE AUTO 6.75 K/mm3 (1.96-9.15); NEUTROPHILS PERCENT AUTO 84 % (41-73); RDW Coefficient Variation 19.8 % (11.7-14.2); RDW Standard Deviation 64.7 fL (35.1-46.3); Red Blood Cell Count 2.54 M/mm3 (4.30-5.90); White Blood Cell Count 8.03 K/mm3 (4.00-11.30)
[2019-04-18 03:51] LABS: Platelet Count 27 K/mm3 (150-400)
[2019-04-18 04:08] LABS: Albumin, Blood 2.4 g/dL (3.4-5.0); Albumin/Globulin Ratio 0.7 (0.8-1.8); Bilirubin, Total 0.6 mg/dL (0.1-1.0); Bun/Creatinine Ratio 30.9 (12.0-20.0); Calcium, Blood 8.6 mg/dL (8.5-10.1); Creatinine, Blood 1.62 mg/dL (0.60-1.20); Globulin, Blood 3.5 g/dL (2.2-4.0); Potassium, Blood 4.1 mmol/L (3.5-5.5); Total Protein, Blood 5.9 g/dL (6.4-8.2)
--- NOTE | 2019-04-18 05:18 | NUR ---
LOW H&H AND PLTS SEE LABS - MD KEVYN NOTIFIED. ORDERS GIVEN.
--- NOTE | 2019-04-18 05:20 | NUR ---
PCU NOC SHIFT SUMMARY PATIENT ALERT TO SELF AND FAMILY T/O SHIFT - FOLLOWS DIRECTIONS. PATIENT HAS MUMBLED NONSENSICALLY T/O SHIFT. PATIENT HAS LEVOPHED GTT RUNNING AT 4MCG/MIN - UNABLE TO TITRATE GTT FURTHER DUE TO MAP DROPPING BELOW 65 - WILL CONTINUE TO MONITOR AND TITRATE TOLERATED. PATIENTS HEART RATE REMAINS 70'S IN NSR. RESP UNEVEN T/O SHIFT FROM 8-12 BREATHS PER MIN, NC IN PLACE. PATIENT HAS WOUNDS ON COCCYX (STAGE 2 OLD PRESSURE ULCER HEALING); RIGHT GREAT TOE BLOOD BLISTER FROM HITTING SOMEONE IN HIS WHEEL CHAIR AT [facility], BLEEDIN [facility] THAT CONTINUES TO OOZE, SKIN TEAR ON LEFT MURDOCK WITH MEPALEX IN PLACE. PATIENT ALSO HAS SCATTERED EXTREMETY BRUISING AND 3+ PITTING ANASARCA THAT HAS WORSENED T/O SHIFT. PATIENT REMAIN JOVIAL YET CONFUSED. CLINIMIX RUNNING T/O SHIFT PER EMAR. PATIENT HAS BIPAP AT BEDSIDE THAT HE WORSE FOR APPROX 2 HOURS THEN REFUSED BECAUSE IT MADE HIM HOT. ABD FIRM AND NONTENDER, SUPRA PUBIC ROBERTSON IN PLACE DRAINING TO GRAVITY. NO BM THIS SHIFT. PATIENT IS ON BEDREST AND NPO. Q2 HOUR TURNS AND ROM PERFORMED THIS SHIFT. WILL CONTINUE TO MONITOR AND GIVE REPORT TO TESSA HALE.
--- NOTE | 2019-04-18 05:54 | NUR ---
1 UNIT PRBC STARTED NO INTERACTIONS NOTED FIRST 15 MIN - TITRATED BLOOD.
--- NOTE | 2019-04-18 08:00 | NUR ---
ASSUMED CARE RECIEVED REPORT FROM FER. PT RECIEVING LEVOPHED AT 2MCG/MIN, AND CLINEMAX AT 125 ML/HR. PT AWAKE, AND ALERT, BUT CONFUSED AND HAS GARBLED SPEECH.
[2019-04-18 10:48] LABS: BASOPHILS ABSOLUTE AUTO 0.01 K/mm3 (0.00-0.23); BASOPHILS PERCENT AUTO 0 % (0-2); EOSINOPHILS ABSOLUTE AUTO 0.02 K/mm3 (0.00-0.68); EOSINOPHILS PERCENT AUTO 0 % (0-6); Hematocrit 24.9 % (37.0-53.0); Hemoglobin 7.7 g/dL (13.5-17.5); IMMATURE GRAN ABSOLUTE AUTO 0.03 K/mm3 (0.00-0.10); IMMATURE GRAN PERCENT AUTO 0 % (0-1); LYMPHOCYTES ABSOLUTE AUTO 0.73 K/mm3 (0.84-5.20); LYMPHOCYTES PERCENT AUTO 10 % (21-46); MONOCYTES ABSOLUTE AUTO 0.52 K/mm3 (0.16-1.47); MONOCYTES PERCENT AUTO 7 % (4-13); Mean Corpuscular HGB 27.6 pg (26.0-34.0); Mean Corpuscular HGB Conc 30.9 g/dL (31.5-36.5); Mean Corpuscular Volume 89 fL (80-100); NEUTROPHILS ABSOLUTE AUTO 6.09 K/mm3 (1.96-9.15); NEUTROPHILS PERCENT AUTO 82 % (41-73); RDW Coefficient Variation 18.7 % (11.7-14.2); RDW Standard Deviation 60.4 fL (35.1-46.3); Red Blood Cell Count 2.79 M/mm3 (4.30-5.90)
[2019-04-18 10:58] LABS: Platelet Count 24 K/mm3 (150-400)
[2019-04-18 14:56] LABS: Vancomycin, Trough 26.6 ug/mL (5.0-10.0)
--- NOTE | 2019-04-18 17:00 | NUR ---
SHIFT SUMMARY PT IS ALERT AND ORIENTED X4 AND IS MAKING GREAT PROGRESS. PT IS ON 8L HIGH FLOW, HUMIDITY NC AND IS SAT'ING 94+. PT IS RECIEVING LEVOPHED AT 2MCG/MIN AND IS MAINTAINING MAP'S > 65, FEW TIMES DURING SHIFT PT HAD DROPPED BELOW 65, BUT HAS BEEN STEADY LAST FEW HOURS. PT IS NOW ON A PUREE DIET AND IS SWALLOWING SPOONFULS OF LIQUID WELL, PT IS BELCHING. PT IS HAVING A MORE PRODUCTIVE COUGH AND HAD A SMALL AMOUNT OF THICK ALBARADO SECRETIONS. PT IS SHOWING SIGNIFICANTLY LESS SWELLING IN UPPER EXTREMETIES, HOWEVER, SWELLING IS STILL PRESENT IN FEET. ARMS ARE WEEPING SLIGHLTY. ROBERTSON STILL IN PLACE HANGING TO GRAVITY, AND RECTAL TUBE WAS REMOVED TODAY. PT HAD 2200 IN UOP.
--- NOTE | 2019-04-18 18:45 | NUR ---
ADDITIONAL 15 MINUTES OF MANUAL PRESSURE HELD AFTER 45 MINUTES OF PRESSURE HELD BY GEOFFREY BAUER. ANTHONY/GAUZE/OP-SITE PLACED OVER INSERTION SITE. PEA SIZED AMT OF BLOOD ON THE DRESSING.
--- NOTE | 2019-04-18 19:10 | NUR ---
BEDSIDE REPORT GIVEN TO GEOFFREY ENNIS. PRIOR CENTRAL LINE SITE VISUALIZED AND REMAINS UNCHANGED. PICC LINE SITE ALSO REMAINS STABLE (NO BLEEDING/OOZING) FROM INSERTION SITE. LEVOPHED @ 2MCG/MIN AND CLINIMIX @ 75ML/HR INFUSING THROUGH PICC.
--- NOTE | 2019-04-18 19:19 | NUR ---
SHIFT SUMMARY PT IS ALERT SEEMINGLY ORIENTED TO SURROUNDINGS; HE IS HAVING DIFFICULTY ENUNCIATING HIS WORDS, BUT NODS APPROPRIATELY. PT REPORTS PAIN ON PALPATION OF ABDOMEN. PT IS ON 2L NC AND SAT'ING MID 90'S. PT IS RECIEVING LEVOPHED AT 2MCG/MIN. PT IS STILL SWOLLEN IN EXTREMETIES, AND HAS DOPPABLE PULSE IN HIS FEET, AND PALPABLE PULSES IN HIS HANDS. RIGHT IJ WAS TAKEN OUT, AND WAS BLEEDING STEADILY; HELD PRESSURE FOR ABOUT AN HOUR, BEFORE PUTTING ANTHONY DRESSING AND GAUZE. HEMOSTASIS AT THIS TIME. PICC LINE WAS INSERTED INTO RIGHT LIMB, VERIFIED BY XRAY. CLINIMAX IS INFUSING AT 125ML/HR. DIURESIS, VIA LASIX BEGAN AT END OF SHIFT.
--- NOTE | 2019-04-18 20:14 | NUR ---
supportive visit with patient. Family at bedside, will follow for symptom managment and paln of care and family support. Ivana is on staff at [facility] [place] and will need support.
--- NOTE | 2019-04-18 20:25 | NUR ---
Review of plan of care with intesivist.
--- NOTE | 2019-04-18 22:19 | NUR ---
ASSUMING CARE RECEIVED PT REPORT FROM GEOFFREY MCDONALD. PT IS ABLE TO ANSWER QUESTIONS APPROPRIATELY BUT SPEECH IS GARBLED AND DIFFICULT TO UNDERSTAND, AND PT IS SLOW TO REPSOND AT TIMES. PT IS CURRENTLY RECEIVING LEVOPHED, RATE OF LEVOPHED IS 4MCG/MIN AT THE TIME CARE ASSUMED. PT BP IS IN THE 100-110 RANGE. LEVOPHED TITRATED DOWN TO 3.5MCG/MIN SHORTLY AFTER CARE ASSUMED. PT BP APPEARS TO BE STABLE AT THIS TIME. PT IS RECEIVING O2 AT 2L VIA NC. PT SPO2 IS IN THE HIGH 90'S. PT HR IS IN THE 60-70 RANGE AND APPEARS TO BE SINUS. PT IS RECEIVING CLINIMIX AT 75ML/HR. PT HAS SUPRAPUBIC CATH IN PLACE, CATH IN PLACE AT THE TIME OF ADMISSION PER REPORT. CATH DRAINING CLEAR YELLOW URINE AT THIS TIME. PT IJ CENTRAL LINE WAS PULLED ON DAY SHIFT PER REPORT. SITE HAS TRANSPARENT DRESSING AND ANTHONY PAD IN PLACE. SOME DRAINAGE NOTED AT THE START OF SHIFT. NO FURTHER DRAINAGE NOTED AT THIS TIME, AND SITE APPEARS TO BE STABLE. ASSUMED CARE OF PT AT THE TIME OF SHIFT REPORT. WILL CONTINUE TO MONITOR PT.
[2019-04-19 03:34] LABS: BASOPHILS PERCENT AUTO 0 % (0-2); EOSINOPHILS ABSOLUTE AUTO 0.02 K/mm3 (0.00-0.68); EOSINOPHILS PERCENT AUTO 0 % (0-6); Hematocrit 23.3 % (37.0-53.0); Hemoglobin 7.4 g/dL (13.5-17.5); IMMATURE GRAN ABSOLUTE AUTO 0.01 K/mm3 (0.00-0.10); IMMATURE GRAN PERCENT AUTO 0 % (0-1); LYMPHOCYTES ABSOLUTE AUTO 0.63 K/mm3 (0.84-5.20); LYMPHOCYTES PERCENT AUTO 11 % (21-46); MONOCYTES ABSOLUTE AUTO 0.44 K/mm3 (0.16-1.47); MONOCYTES PERCENT AUTO 8 % (4-13); Mean Corpuscular HGB 28.7 pg (26.0-34.0); Mean Corpuscular HGB Conc 31.8 g/dL (31.5-36.5); Mean Corpuscular Volume 90 fL (80-100); Mean Platelet Volume 11.4 fL (9.1-12.4); NEUTROPHILS ABSOLUTE AUTO 4.77 K/mm3 (1.96-9.15); NEUTROPHILS PERCENT AUTO 81 % (41-73); RDW Coefficient Variation 19.2 % (11.7-14.2); RDW Standard Deviation 60.9 fL (35.1-46.3); Red Blood Cell Count 2.58 M/mm3 (4.30-5.90); White Blood Cell Count 5.87 K/mm3 (4.00-11.30)
[2019-04-19 03:37] LABS: Platelet Count 22 K/mm3 (150-400)
--- NOTE | 2019-04-19 06:20 | NUR ---
SHIFT SUMMARY NOTE PT HAS REMAINED ALERT THROUGH THE NIGHT. PT SPEECH REMAINS GARBLED AND DIFFICULT TO UNDERSTAND. PT IS ABLE TO ANSWER SOME QUESTIONS APPROPRIATELY BUT IS SLOW TO RESPOND. PT REMAINS ON LEVOPHED AT THIS TIME. LEVOPHED TITRATED DOWN THROUGH THE NIGHT AND IS AT 2MCG/MIN AT THIS TIME. BP BP IS STABLE AT THIS TIME WITH SYSTOLIC IN THE 90'S-100 RANGE. PT HR HAS REMAINED STABLE IN THE 70-80 RANGE THROUGH THE NIGHT. PT HAS REMAINED ON 2L O2 VIA NC WITH SPO2 MAINTAINED IN THE 90'S THROUGH THE NIGHT. PT CONTINUES TO HAVE TRANSPARENT DRESSING AND ANTHONY PAD IN PLACE OVER THE IJ CENTRAL LINE SITE. NO DRAINAGE THROUGHOUT THE NIGHT HAS BEEN NOTED AND SITE REMAINS STABLE AT THIS TIME. PT CONTINUES TO RECEIVE CLINIMIX AT 75ML/HR. [facility]
[2019-04-19 13:34] LABS: Bun/Creatinine Ratio 37.2 (12.0-20.0); Calcium, Blood 8.4 mg/dL (8.5-10.1); Creatinine, Blood 1.37 mg/dL (0.60-1.20); Potassium, Blood 3.9 mmol/L (3.5-5.5)
--- NOTE | 2019-04-19 13:54 | NUR ---
Need to set up time for AD with family and to review care plan
--- NOTE | 2019-04-19 15:52 | NUR ---
SON OF PT CALLED FOR HELP PT HAD THICK SPUTUM STUCK IN HIS THROAT. SUCTIONED THICK BROWN SPUTUM FROM AIRWAY, WAS STILL OBSTRUCTED. DEEP SUCTIONED LARGE AMOUNT OF THICK TENACIOUS SPUTUM WITH NO DISTURBANCE OF PATIENT, NO GAG REFLEX, NO SWALLOW, WEAK, INEFFECTIVE COUGH. SUCCESSFULLY REMOVED SPUTUM. PT DENIED ANY FURTHER SOB.
--- NOTE | 2019-04-19 19:47 | NUR ---
PT WAS AWAKE ALL DAY, ALERT TO NAME AND FAMILY, SLOW TO SPEAK, 1 TO OCCASIONALLY 3 WORD SENTENCES. EQUAL BOWL ATTENDANT/PUSH PULLS FEET, WEAK STRENGTH. LS CLEAR, DIM BASES. SPO2 MID 90'S ON 2 L NC. HR 70'S, SINUS RHYTHM WITH 1ST DEGREE AV BLOCK. MAP MAINTAINED > 65, SBP 100'S ON 2 MCG/MIN LEVOPHED. PHYSICAL THERAPY DONE TODAY. PT STARTED GURGLING THIS AFTERNOON, DEEP SUCTIONED THICK SPUTUM, SEE NOTE, NO GAG REFLEX OR SWALLOW NOTED. URINE OUTPUT ADEQUATE. SWALLOW EVAL ORDERED FOR TOMORROW AM. REPOSITIONED Q 2 HRS WITH FREQUENT ORAL CARE.
--- NOTE | 2019-04-19 20:00 | NUR ---
ASSUMED CARE AT 1900./ REVIEWED STATUS W/ DAY RN. NOTED. TONGUE SEEMS LOOSE AND AWKWARD IN MOUTH AND ONLY A SLIGHT SOUND WHEN ASKED TO SAY NO INSTEAD OF NODDING. WAS SLEEPING SOUNDLY AND EXTRENE WEAKNESS WHEN REQ A HAND GRASP. EQUAL FOLLOW OF COMMAND FOR VERY SLIGHT SQUEEZE. SLIGHT MOVEMENT OF BOTH FEET. TO COMMAND. NO STRENGTH. ALMOST UNABLE TO TURN HEAD TO RT UPON REQUEST. ENC TO COUGH AND DEEP BREATHE AND GOOD EFFORT . SEVERE ANASARCA. NPO . WOUND LT MURDOCK COVERED MEPILEX . MOIST AND A TYLE OF ABRASION. NOREPI TITRATED TO KEEP MAP >65.
--- NOTE | 2019-04-20 | NUR ---
OCCASIONALLY NEED TO SX GENTLY W/ 14 FR SX CATH . TO RETRIEVE ANY LOOSE MUCUS AT BACK OF THROAT. NO NT SX DUE TO BLEEDING TENTENCY. RELIEVING THIS GURGLING MOIST SOUMD. NO DESAT NOTED AND HIGH FOWLERS FOR BREATHING COMFORT . NO RESP DISTRESS NOTED. TURNED Q 2 HR AND BOTH ARMS LIFTED SLIGHTLY AT THIS TIME. AND ENC TO CONT W/ THIS ACTIVE ROM. NO EXT ASSIST W/ TURNING.
[2019-04-20 03:59] LABS: BASOPHILS PERCENT AUTO 0 % (0-2); EOSINOPHILS ABSOLUTE AUTO 0.03 K/mm3 (0.00-0.68); EOSINOPHILS PERCENT AUTO 1 % (0-6); Hematocrit 21.1 % (37.0-53.0); Hemoglobin 6.6 g/dL (13.5-17.5); IMMATURE GRAN ABSOLUTE AUTO 0.01 K/mm3 (0.00-0.10); IMMATURE GRAN PERCENT AUTO 0 % (0-1); LYMPHOCYTES ABSOLUTE AUTO 0.64 K/mm3 (0.84-5.20); LYMPHOCYTES PERCENT AUTO 16 % (21-46); MONOCYTES ABSOLUTE AUTO 0.35 K/mm3 (0.16-1.47); MONOCYTES PERCENT AUTO 9 % (4-13); Mean Corpuscular HGB 28.9 pg (26.0-34.0); Mean Corpuscular HGB Conc 31.3 g/dL (31.5-36.5); Mean Platelet Volume 12.5 fL (9.1-12.4); NEUTROPHILS ABSOLUTE AUTO 2.96 K/mm3 (1.96-9.15); NEUTROPHILS PERCENT AUTO 74 % (41-73); RDW Coefficient Variation 19.3 % (11.7-14.2); RDW Standard Deviation 62.8 fL (35.1-46.3); Red Blood Cell Count 2.28 M/mm3 (4.30-5.90); White Blood Cell Count 3.99 K/mm3 (4.00-11.30)
[2019-04-20 04:09] LABS: Mean Corpuscular Volume 93 fL (80-100)
[2019-04-20 04:10] LABS: Platelet Count 20 K/mm3 (150-400)
[2019-04-20 04:16] LABS: Albumin, Blood 2.3 g/dL (3.4-5.0); Anion Gap 4 mmol/L (6-16); Blood Urea Nitrogen 51 mg/dL (8-24); Bun/Creatinine Ratio 39.2 (12.0-20.0); CO2, Blood 35 mmol/L (21-32); Calcium, Blood 8.6 mg/dL (8.5-10.1); Chloride, Blood 105 mmol/L (98-108); Glomerular Filtration Rate 57 (60-); Glucose, Blood 244 mg/dL (70-99); Phosphorus, Blood 3.8 mg/dL (2.5-4.9); Potassium, Blood 3.9 mmol/L (3.5-5.5); Sodium, Blood 144 mmol/L (136-145)
--- NOTE | 2019-04-20 06:00 | NUR ---
SHIFT SUMMARY. PLACED CALL TO DR FERNANDES ABOUT LAB. ORDERS LEFT. OPENS EYES . NO ATTEMPT TO TALK. SOME SIMPLE COMMANDS FOLLOWED/ DENIES PAIN. TEMP IN ROOM OK. ONLY SLIGHT NOD OF HEAD TO EXPRESS NEEDS. NO BLEEDING NOTED. URINE CL YELLOW. NO STOOL. SX BACK OF THROAT = NO BLEEDING. NO CLINIMIX AVAILABLE IN THIS FACILITY AT THE 0500 TIME IT WAS DUE .PRBCS WILL BE HUUNG SOON. DR FERNANDES AWARE. LUNGS RHONCHI BUT CLEARING MOSTLY POST SX. VERY SLIGHT GAG REFLEX AND EXTREMELY WEAK COUGH . NC IN MOUTH ALL NOC MOUTH BREATHING ALWAYS. 2L ALL NOC./SR FIRST DEGREE. LEVOPHED ON 1 MCG MOST OF NOC. ATTEMPTED TO TURN OFF BUT NOT ACCEPTABALE WITH KEEPING MAP >65. LIFTS BOTH ARMS ONCE AND THEN NEVER AGAIN. ONLY A SLIGHT HAND GRASP TO COMMAND,NO FINE MOTOR MOVEMENT. SOME PASSIVE ROM DONE, AND FAMILY SAYS HE HAS BEED UNABLE TO MOVE OR USE LEGS FOR A LONG TIME. EXTREME STIFFNESS.
--- NOTE | 2019-04-20 07:58 | NUR ---
ASSUMED CARE: PT RESTING QUIETLY IN BED. BLINKS AND NODS TO YES/NO QUESTIONS. SQUEEZES FINGERS WHEN ASKED BUT UNABLE TO MOVE TOES. LEVOPHED AT 1MCG/KG/MIN THROUGH PICC LINE. SON AT BEDSIDE. [address]BC [address] ORDERS. NO FURTHER NEEDS OR CONCERNS AT THIS TIME.
--- NOTE | 2019-04-20 08:39 | NUR ---
SPEECH THERAPY AWARE OF PT AND STATES THEY WILL BE BY TO SEE PT LATER THIS SHIFT
--- NOTE | 2019-04-20 11:26 | NUR ---
RO FROM CAME TO SEE PT AND DID NOT RECOMMEND ANY PO INTAKE. STARTED DISCUSSION OF COMFORT CARE VS PEG TUBE DUE TO THIS BEING R/T PT'S PROGRESSIVE CONDITION. PALLIATIVE CARE NURSE RICH CALLED TO ALSO DISCUSS WITH FAMILY. FAMILY DECIDED COMFORT CARE. RICH NOTIFIED DR QUACH. AWAITING NEW ORDERS.
--- NOTE | 2019-04-20 12:57 | NUR ---
DR QUACH CAME TO SEE PT AND ENTERED COMFORT CARE ORDERS. FAMILY AWARE AND REPORT GIVEN TO MARIA DEL CARMEN HALE. PT TRANSFERRED VIA BED BY HOSPITAL STAFF. FAMILY AWARE. PT HAS BEEN OFF LEVOPHED FOR ABOUT 1.5 HOURS AND HAS BEEN TOLERATING WELL
--- NOTE | 2019-04-20 13:15 | NUR ---
PT TRANSFERRED UP FROM ICU, PT ON COMFORT CARE, FAMILY AT THE BEDSIDE
--- NOTE | 2019-04-20 18:10 | NUR ---
SUMMARY PT TRANSFERRED UP FROM ICU, PT ON COMFORT CARE, SPEECH IS GARBLED AND DIFFICULT TO UNDERSTAND, PT MOUTH BREATHES, LOTS AND LOTS OF FAMILY IN THE ROOM, PT NEEDS FREQUENT SUCTIONING OF VERY THICK SECRETIONS, PT ON COMFORT CARE, WILL CONT TO MONITOR
--- NOTE | 2019-04-20 19:31 | NUR ---
Multiple visits today. Review of pt with Speech therapitst who put inconsiderable time with family on prognosis and care needs. Review of pat with intesnsivist and paln is to discuss hospice. Family is accepting of hospice and his care needs will transition to comfort care. May keep hism here to observe trending as pressors were discontinued and airway stress. Floow up thei evening pt having more secretions and he is stiffer in his facial and upper chest muscles. Review with warehouse shift supervisor postioning for airway comfort. Made neck pillow to optimize airway. Revie of Prn meds to askk hosptialist for muscle tightness.
--- NOTE | 2019-04-21 07:28 | NUR ---
comfort care, saline locked, 2L via nc, call light in reach, family in room, walking rounds completed with returning day staff, suction to remove mucus
--- NOTE | 2019-04-21 17:26 | NUR ---
Present this morning in pt's room when ANDRE Gardner, visited with pt's daughters Rafaela and Rosa. Pt lives with his daughter Rosa and she would like to take him home with hospice services. They have chosen [facility]. Rosa states that they have a hospital bed and over bed table already. She reports that they good family support in the area and feel that they can manage him at home. Rosa recently had foot surgery, however her sister Rafaela and other family can assist with providing care. Maldonado slept through the visit today. Nursing reports he has thick secretions which are being suctioned at times. Family reports that they feel he is comfortable at this time. He appears peaceful lying on his back with his HOB elevated. PC will continue to provide pt and family with support.
--- NOTE | 2019-04-21 18:06 | NUR ---
Called to pt's room. Pt having periods of apnea. Nursing medicated him with roxinol. Family in room. Emotional support provided. Comfort care booklet given and discussed normal EOL signs. Pt's dtr Rosa, visibly upset and tearful. Pt's dtr Rafaela, accepting of transition and is holding her dad's hand at this time. Numberous family and friends in room. PC will remain available. Pt taking shallow breaths, no apnea noted during my visit but nursing reports pt had apnic episode prior to this fha underwriter's arrival.
--- NOTE | 2019-04-21 18:49 | NUR ---
SHIFT SUMMARY PTS FAMILY HAS BEEN AT BEDSIDE THROUGHOUT THE DAY. PT HAS HAD PAIN MEDS SEVERAL TIMES. PTS FAMILY FEELS THAT THE TIME IS NEAR AND ASKED THE NURSE TO CHECK WHEN PT WAS HAVING AGNOL BREATHING. PAIN MEDS WERE GIVEN PT APPEARS TO BE MORE RELAXED. FAMILY CONTINUES TO BE AT BEDSIDE.
--- NOTE | 2019-04-22 06:42 | NUR ---
Spiritual care visit conducted. Patient's family requested spiritual care, so I entered patient's room to find three of his grown children sitting tearfully in the room. I facilitated a life review, provided grief and emotional support, provided a calming presence and provided a prayer. Family expressed appreciation, not only to me but for the entire [facility] staff for their love, care and excellence.
--- NOTE | 2019-04-22 09:25 | NUR ---
04/22/19 0900 after family left sp cath was left in and the cath was plugged to prevent urine drainage, the picc line was also left in to prevent blood spill for mortuary. vazquez severino was the resp. that pickle pumper the pt.
== END 2019-04-22 05:10 | DRG 698 ==
LOC: ER 10:24 → ICUE 14:18 → ICUW 14:18 → ICUE 15:11 → MEDS 04-20 12:54
PROVIDERS: Emergency Medicine; Internal Medicine; Internal Medicine Critical Care Medicine; ADMIT Internal Medicine
PROC: 02HV33Z Insertion of Infusion Device into Superior Vena Cava, Percutaneous Approach (ICD-10-PCS; principal; 2019-04-16)
PROC: 30233R1 Transfusion of Nonautologous Platelets into Peripheral Vein, Percutaneous Approach (ICD-10-PCS; 2019-04-16)
PROC: 5A1935Z Respiratory Ventilation, Less than 24 Consecutive Hours (ICD-10-PCS; 2019-04-16)
PROC: 5A09357 Assistance with Respiratory Ventilation, Less than 24 Consecutive Hours, Continuous Positive Airway Pressure (ICD-10-PCS; 2019-04-16)
DX: T83.511A Infection and inflammatory reaction due to indwelling urethral catheter, initial encounter (principal); A41.9 Sepsis, unspecified organism; R65.21 Severe sepsis with septic shock; A39.1 Waterhouse-Friderichsen syndrome; D61.818 Other pancytopenia; D68.51 Activated protein C resistance; I50.22 Chronic systolic (congestive) heart failure; J96.12 Chronic respiratory failure with hypercapnia; G93.40 Encephalopathy, unspecified; N17.9 Acute kidney failure, unspecified; N39.0 Urinary tract infection, site not specified; E11.9 Type 2 diabetes mellitus without complications; Z79.4 Long term (current) use of insulin; I11.0 Hypertensive heart disease with heart failure; G40.909 Epilepsy, unspecified, not intractable, without status epilepticus; Z66 Do not resuscitate; Z85.828 Personal history of other malignant neoplasm of skin; G62.9 Polyneuropathy, unspecified; E03.9 Hypothyroidism, unspecified; G98.8 Other disorders of nervous system; Z86.718 Personal history of other venous thrombosis and embolism; Z79.01 Long term (current) use of anticoagulants; G25.0 Essential tremor; Z96.651 Presence of right artificial knee joint; Z87.891 Personal history of nicotine dependence; I95.2 Hypotension due to drugs; T46.4X5A Adverse effect of angiotensin-converting-enzyme inhibitors, initial encounter; G89.29 Other chronic pain; E66.01 Morbid (severe) obesity due to excess calories; Z68.38 Body mass index [BMI] 38.0-38.9, adult; Z51.5 Encounter for palliative care; I25.2 Old myocardial infarction
CPT/HCPCS: 36415; 36430; 36556; 36569; 36600; 51702; 70450; 71045; 80048; 80053; 80069; 80202; 81001; 82533; 82803; 82947; 83605; 83880; 84145; 84439; 84481; 84484; 85014; 85018; 85025; 85049; 85379; 85384; 85610; 85730; 86850; 86900; 86901; 86923; 87040; 87077; 87086; 87186; 92526; 92610; 93005; 93010; 93308; 93321; 94660; 96365-59; 96366-59; 96367-59; 96368; 96375-59; 97110; 97162; 99285-25; C1751; J0295; J0461; J0692; J1100; J1720; J1940; J1953; J1956; J3370; J3430; J3480; J7030; J7050; J7060; P9016; P9035